=== PATIENT | female | born 1975 | race Asian ===

== ENCOUNTER 2019-02-24 12:49 | Outpatient (CLI) | payer OTHER | END 2019-02-24 23:59 | disposition home or self-care (01) | LOC: RAD 12:49 | DX: Z11.1 Encounter for screening for respiratory tuberculosis (principal); J84.10 Pulmonary fibrosis, unspecified; R76.11 Nonspecific reaction to tuberculin skin test without active tuberculosis; Z87.891 Personal history of nicotine dependence | CPT/HCPCS: 71046 ==